=== PATIENT | female | born 1985 | race Asian ===

== ENCOUNTER → 2016-05-21 | Outpatient (CLI) | payer OTHER ==
--- NOTE | 2016-05-22 13:17 | REP ---
THYROID UPTAKE AND SCAN: HISTORY: Hyperthyroid. TECHNIQUE: 394 microcuries of I-123 sodium iodide is ingested, and 2- and 24-uptake values are acquired along with functional thyroid images. FINDINGS: The 2-hour uptake is at the upper range of normal at the 11.7% (6-12%). 24-hour uptake value is elevated at 37.8% (25-35%). Functional images show homogeneous uptake in symmetrically somewhat enlarged thyroid lobes. No cold or warm lesion seen. IMPRESSION: Homogeneous function, increased uptake. Findings compatible with Graves disease. Signed by Arnel Chirinos MD 05/22/2016 02:34 P
== END ==
LOC: M RAD 09:49
PROVIDERS: ATTEND Internal Medicine Endocrinology, Diabetes & Metabolism
DX: E05.00 Thyrotoxicosis with diffuse goiter without thyrotoxic crisis or storm (principal)

== ENCOUNTER → 2016-07-10 | Outpatient (CLI) | payer OTHER ==
[2016-07-10 10:28] LABS: CONTROL LINE HCG INT CTR LINE PRESENT
[2016-07-10 21:17] LABS: FREE T4 2.95 NG/DL (0.76-1.46)
== END ==
LOC: M LAB 09:26
PROVIDERS: ATTEND Physician Assistant Medical
DX: E05.00 Thyrotoxicosis with diffuse goiter without thyrotoxic crisis or storm (principal)

== ENCOUNTER → 2016-07-10 | Outpatient (CLI) | payer OTHER | LOC: M RAD 09:54 | PROVIDERS: ATTEND Internal Medicine Endocrinology, Diabetes & Metabolism | DX: E05.00 Thyrotoxicosis with diffuse goiter without thyrotoxic crisis or storm (principal) | CPT/HCPCS: 36415; 83519; 84439; 84443; 84703; A9517 ==

== ENCOUNTER → 2017-07-01 | Outpatient (CLI) | payer OTHER | LOC: M LAB 11:25 | DX: E89.0 Postprocedural hypothyroidism (principal) ==

== ENCOUNTER 2017-08-18 16:13 | Emergency (ER) | payer OTHER ==
[2017-08-18 18:00] LABS: BASO # 0.1 10^3/uL (0.0-0.2); BASO % 0.7 % (0.0-1.0); EOS # 0.6 10^3/uL (0.0-0.50); EOS % 6.8 % (0.0-3.0); HEMATOCRIT 37.3 % (36.0-47.0); HEMOGLOBIN 14.1 g/dl (12.0-15.5); IMMATURE GRANULOCYTE % 0.6 % (0-3.0); LYMPH % 11.9 % (24.0-44.0); MEAN CORPUSCULAR HEMOGLOBIN 33.4 pg (27.0-33.0); MEAN CORPUSCULAR VOLUME 88.4 fl (80.0-96.0); MONO # 0.6 10^3/uL (0.0-0.8); MONO % 7.5 % (0.0-5.0); NEUTROPHILS # 5.9 10^3/uL (1.8-7.7); NEUTROPHILS % 72.5 % (36.0-66.0); PLATELET COUNT, AUTOMATED 419 10^3/uL (150-450); RED BLOOD COUNT 4.22 10^6/uL (4.00-5.40); WHITE BLOOD COUNT 8.1 10^3/uL (4.0-10.0)
[2017-08-18] MEDS ORDERED: ISOVUE-370 76% 100ML VIAL (Q9967) As Ordered (18:28)
[2017-08-18 18:31] LABS: ANION GAP 6 MEQ/L (8-16); BLOOD UREA NITROGEN 15 MG/DL (7-18); CALCIUM LEVEL 8.4 MG/DL (8.5-10.1); CARBON DIOXIDE LEVEL 29 MEQ/L (21-32); CHLORIDE LEVEL 109 MEQ/L (98-107); CREATININE FOR GFR 0.72 MG/DL (0.55-1.30); GLOMERULAR FILTRATION RATE > 60.0 (>60); GLUCOSE, FASTING 95 MG/DL (70-100); POTASSIUM SERUM 3.9 MEQ/L (3.5-5.1); SODIUM LEVEL 144 MEQ/L (136-145)
[2017-08-18 18:37] LABS: POS COUNT POS FLAG
[2017-08-18 18:38] LABS: MEAN CORPUSCULAR HGB CONC 37.8 g/dl (32.0-36.5)
[2017-08-18] MEDS: NAPROXEN 250 MG TAB PO (20:15)
[2017-08-18] MEDS: traMADol 50 MG TAB (BULK 4 TAB ED) PO (20:15)
== END 2017-08-18 20:19 | disposition home or self-care (01) ==
LOC: M ED 16:13
DX: M54.89 Other dorsalgia (principal); W10.9XXA Fall (on) (from) unspecified stairs and steps, initial encounter; Y92.099 Unspecified place in other non-institutional residence as the place of occurrence of the external cause; Y93.9 Activity, unspecified; Y99.9 Unspecified external cause status; I10 Essential (primary) hypertension; E03.9 Hypothyroidism, unspecified; F17.200 Nicotine dependence, unspecified, uncomplicated; Z79.899 Other long term (current) drug therapy
CPT/HCPCS: Q9967

== ENCOUNTER → 2017-11-01 | Outpatient (CLI) | payer OTHER ==
[2017-11-07 08:10] LABS: FREE T4 BY DIALYSIS DIRECT 1.6 ng/dL (.)
== END ==
LOC: M LAB 13:00
DX: E89.0 Postprocedural hypothyroidism (principal)